=== PATIENT | female | born 1990 | race African-American/Black ===

== ENCOUNTER 2017-11-22 23:08 | Emergency (ER) | payer OTHER ==
[~2017-11-22] VITALS: Ht 177.8 cm; Wt 95.0 kg
[2017-11-23] MEDS ORDERED: FAMOTIDINE 20MG TABLET PO SCH
[2017-11-23] MEDS ORDERED: PREDNISONE 20MG TABLET PO ONE
[2017-11-23 01:03] VITALS: BP 113/49
== END 2017-11-23 01:05 | disposition home or self-care (01) ==
LOC: ER 23:08
DX: T78.1XXA Other adverse food reactions, not elsewhere classified, initial encounter (principal); J45.909 Unspecified asthma, uncomplicated; Z88.2 Allergy status to sulfonamides; Z91.018 Allergy to other foods
CPT/HCPCS: 99283; J7512; Z7610